=== PATIENT | male | born 1955 | race Caucasian/White ===

== ENCOUNTER → 2019-11-27 14:12 | Outpatient (BNVA) | payer OTHER, SELFPAY | PROVIDERS: Visit Provider Internal Medicine | DX: J06.9 Acute upper respiratory infection, unspecified (principal) | CPT/HCPCS: 87635 ==

== ENCOUNTER 2020-01-27 08:44 | Outpatient (CLI) | payer OTHER, MEDICARE, BC, SELFPAY ==
--- NOTE | 2020-01-27 09:30 | MM_ITS ---
WS: [id number] BILATERAL DIGITAL DIAGNOSTIC MAMMOGRAM MAMMOGRAPHY WITH CAD CLINICAL INFORMATION: left breast mass and pain COMPARISON: 2009 TECHNIQUE: Bilateral CC, MLO, and ML views. FINDINGS: Scattered fibroglandular densities bilaterally. Palpable marker left breast. Asymmetric subareolar fl steve-shaped parenchymal tissue in the left breast likely represents gynecomastia. Ultrasound is pendin g. Unremarkable right breast. ULTRASOUND BREAST LEFT TECHNIQUE: Ultrasound left breast focused area of concern. CLINICAL INFORMATION: left breast mass and pain COMPARISON: 2009 FINDINGS: Ultrasound left breast. Right breast for comparison. Hypoechoic dense parenchymal tissue deep to the areola typical for gynecomastia. No focal cystic or solid mass. Findings most consistent with gynecom astia. Normal subareolar tissue right breast. MM/[place] [id number] IMPRESSION: BI-RADS: 2-Benign FOLLOW UP: See Report Additional management of the palpable abnormality should be based on clinical g rounds.
--- NOTE | 2020-01-27 10:00 | US_ITS ---
WS: [id number] BILATERAL DIGITAL DIAGNOSTIC MAMMOGRAM MAMMOGRAPHY WITH CAD CLINICAL INFORMATION: left breast mass and pain COMPARISON: 2009 TECHNIQUE: Bilateral CC, MLO, and ML views. FINDINGS: Scattered fibroglandular densities bilaterally. Palpable marker left breast. Asymmetric subareolar fl steve-shaped parenchymal tissue in the left breast likely represents gynecomastia. Ultrasound is pendin g. Unremarkable right breast. ULTRASOUND BREAST LEFT TECHNIQUE: Ultrasound left breast focused area of concern. CLINICAL INFORMATION: left breast mass and pain COMPARISON: 2009 FINDINGS: Ultrasound left breast. Right breast for comparison. Hypoechoic dense parenchymal tissue deep to the areola typical for gynecomastia. No focal cystic or solid mass. Findings most consistent with gynecom astia. Normal subareolar tissue right breast. US/US breast LT limited* [id number] IMPRESSION: BI-RADS: 2-Benign FOLLOW UP: See Report Additional management of the palpable abnormality should be based on clinical g rounds.
== END 2020-01-27 08:45 | disposition home or self-care (01) ==
LOC: RADSHAW 08:48
PROVIDERS: PCP Electrodiagnostic Medicine; Visit Provider Surgery
DX: N63.20 Unspecified lump in the left breast, unspecified quadrant (principal); N64.89 Other specified disorders of breast; N64.4 Mastodynia
CPT/HCPCS: 76642; 77066

== ENCOUNTER 2024-01-06 10:02 | Emergency (ER) | payer OTHER, MEDICARE, BC, SELFPAY ==
[2024-01-06] VITALS (8 sets, daily range): BP systolic 105–133; BP diastolic 65–86; PULSE 105–114; RESP 18–20; TEMP 36.5; O2SAT 83–91; BMI 30.7
--- NOTE | 2024-01-06 10:04 | ECG_ITS ---
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 Measurements Intervals [place] Rate: 109 P: 56 TN: 131 QRS: 42 QRSD: 110 T: 56 QT: 335 QTc: 453 Interpretive Statements SINUS TACHYCARDIA ABNORMAL RHYTHM ECG No previous ECG available for comparison Electronically Signed On 01-06-2024 19:24:32 CDT by Olya Lopez M.D. [id number] f
--- NOTE | 2024-01-06 10:08 | XRR_ITS ---
PROCEDURE INFORMATION: Exam: XR Chest Exam date and time: 01/06/2024 11:06 AM Age: 68 years old Clinical indication: Pain; Shortness of breath; Chest pressure; Additional info: Chest pain TECHNIQUE: Imaging protocol: Radiologic exam of the chest. Views: 1 view. COMPARISON: CT angio chest PE protcl [id number] 01/06/2024 10:27 AM FINDINGS: Lungs: Unremarkable. No consolidation. Pleural spaces: Unremarkable. No pleural effusion. No pneumothorax. Heart/Mediastinum: Unremarkable. No cardiomegaly. Bones/joints: Unremarkable. XR/XR chest 1V portable [id number] IMPRESSION: No acute findings.
--- NOTE | 2024-01-06 10:17 | CTR_ITS ---
PROCEDURE INFORMATION: Exam: CTA Chest With Contrast Exam date and time: 01/06/2024 10:27 AM Age: 68 years old Clinical indication: Shortness of breath; Additional info: Dyspnea tachycardia TECHNIQUE: Imaging protocol: Computed tomographic angiography of the chest with contrast. Exam focused on the arteries. 3D rendering (Not supervised by radiologist): MIP and/or 3D reconstructed images were created by the technologist. Radiation optimization: All CT scans at this facility use at least one of these dose optimization techniques: automated exposure control; mA and/or kV adjustment per patient size (includes targeted exams where dose is matched to clinical indication); or iterative reconstruction. Contrast material: OMNI 350; Contrast volume: 77 ml; Contrast route: INTRAVENOUS (IV); COMPARISON: No relevant prior studies available. RADIATION DOSE METRICS: Total DLP (mGy-cm): 465.49 FINDINGS: Pulmonary arteries: Large bilateral pulmonary emboli involve the main pulmonary arteries as well as multiple primary pulmonary artery branches. Aorta: Unremarkable. No aortic aneurysm. No aortic dissection. Lungs: There is a 7 mm pleural-based nodule with an adjacent air-filled cyst involving the superior aspect of the right lower lobe. Both lungs demonstrate chronic interstitial coarsening. There is mucous plugging involving both lung bases. Pleural spaces: Unremarkable. No pneumothorax. No pleural effusion. Heart: Mild cardiomegaly is noted. Heart RV/LV ratio: The RV/LV ratio is 2.6. Lymph nodes: Unremarkable. No enlarged lymph nodes. Bones/joints: Unremarkable. No acute fracture. Soft tissues: Unremarkable. CT/CT angio chest PE protcl [id number] IMPRESSION: 1. Large bilateral pulmonary emboli with severe right heart strain 2. 7 mm right lung nodule 3. For patients at low risk (minimal or absent history of smoking and of other known risk factors), no routine follow-up is indicated. For patients at high risk (history of smoking or of other known risk factors), consider optional CT Chest at 12 months. (Reference: Eduard) REFERENCES: Eduard Alvarez et al. Guidelines for Management of Incidental Pulmonary Nodules Detected on CT Images: From the Fleischner Society 2017. Radiology. 2017;284(1):228-243.
--- NOTE | 2024-01-06 10:17 | CTR_ITS ---
PROCEDURE INFORMATION: Exam: CT Head Without Contrast Exam date and time: 01/06/2024 10:24 AM Age: 68 years old Clinical indication: Stroke-like symptoms; Altered mental status/memory loss; Additional info: Weakness dyspnea TECHNIQUE: Imaging protocol: Computed tomography of the head without contrast. Radiation optimization: All CT scans at this facility use at least one of these dose optimization techniques: automated exposure control; mA and/or kV adjustment per patient size (includes targeted exams where dose is matched to clinical indication); or iterative reconstruction. Other technique: STROKE PROTOCOL was implemented. COMPARISON: No relevant prior studies available. RADIATION DOSE METRICS: Total DLP (mGy-cm): 1106.4 FINDINGS: Brain: Few small old infarcts involve the left cerebellar hemisphere. A small old infarct involves the left parietal lobe region. Mild diffuse cerebral atrophy is noted. I see no evidence of acute hemorrhage, mass effect or infarct on today's study. Cerebral ventricles: No ventriculomegaly. No midline shift. Paranasal sinuses: There is a 2.2 cm rounded mucous retention cyst in the left sphenoid sinus. Mastoid air cells: Visualized mastoid air cells are well aerated. Bones: Unremarkable. No acute fracture. Soft tissues: Unremarkable. CT/CT head wo con* [id number] IMPRESSION: 1. No acute findings. 2. 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
--- NOTE | 2024-01-06 10:17 | CTR_ITS ---
PROCEDURE INFORMATION: Exam: CTA Head With Contrast, Arteriography Exam date and time: 01/06/2024 10:33 AM Age: 68 years old Clinical indication: Paralysis, transient of limb and weakness; Additional info: Left sided weakness dyspnea TECHNIQUE: Imaging protocol: Computed tomographic angiography of the head with contrast. Exam focused on the arteries. 3D rendering (Not supervised by radiologist): MIP and/or 3D reconstructed images were created by the technologist. Radiation optimization: All CT scans at this facility use at least one of these dose optimization techniques: automated exposure control; mA and/or kV adjustment per patient size (includes targeted exams where dose is matched to clinical indication); or iterative reconstruction. Contrast material: OMNIPAQUE 350; Contrast volume: 80 ml; Contrast route: INTRAVENOUS (IV); COMPARISON: CT head wo con* [id number] 01/06/2024 10:24 AM RADIATION DOSE METRICS: Total DLP (mGy-cm): 497.12 FINDINGS: ANTERIOR CIRCULATION: Right internal carotid artery: Intracranial segment is patent with no significant stenosis. No aneurysm. Right middle cerebral artery: No occlusion or significant stenosis. No aneurysm. Right anterior cerebral artery: No occlusion or significant stenosis. No aneurysm. Left internal carotid artery: Intracranial segment is patent with no significant stenosis. No aneurysm. Left middle cerebral artery: No occlusion or significant stenosis. No aneurysm. Left anterior cerebral artery: No occlusion or significant stenosis. No aneurysm. POSTERIOR CIRCULATION: Right vertebral artery: No occlusion or significant stenosis. No aneurysm. Left vertebral artery: No occlusion or significant stenosis. No aneurysm. Basilar artery: No occlusion or significant stenosis. No aneurysm. Right posterior cerebral artery: No occlusion or significant stenosis. No aneurysm. Left posterior cerebral artery: No occlusion or significant stenosis. No aneurysm. Brain: No definite mass, mass effect, or midline shift. Cerebral ventricles: No ventriculomegaly. Bones/joints: Unremarkable. No acute fracture. Soft tissues: Unremarkable. PROCEDURE INFORMATION: Exam: CTA Neck With Contrast Exam date and time: 01/06/2024 10:33 AM Age: 68 years old Clinical indication: Paralysis, transient of limb and weakness; Additional info: Left sided weakness dyspnea TECHNIQUE: Imaging protocol: Computed tomographic angiography of the neck with contrast. Exam focused on the cervical segments of the vasculature. 3D rendering (Not supervised by radiologist): MIP and/or 3D reconstructed images were created by the technologist. Radiation optimization: All CT scans at this facility use at least one of these dose optimization techniques: automated exposure control; mA and/or kV adjustment per patient size (includes targeted exams where dose is matched to clinical indication); or iterative reconstruction. Contrast material: OMNIPAQUE 350; Contrast volume: 80 ml; Contrast route: INTRAVENOUS (IV); COMPARISON: CT angio chest PE protcl [id number] 01/06/2024 10:27 AM RADIATION DOSE METRICS: Total DLP (mGy-cm): 497.12 FINDINGS: Right common carotid artery: No stenosis. No dissection or occlusion. Right internal carotid artery: No stenosis of the extracranial segment. No dissection or occlusion. Right external carotid artery: No occlusion or stenosis of the origin. Left common carotid artery: No stenosis. No dissection or occlusion. Left internal carotid artery: There is mild atheromatous calcific plaque at the origin of left internal carotid artery without significant stenosis. Left external carotid artery: No occlusion or stenosis of the origin. Right vertebral artery: No stenosis. No dissection or occlusion. Left vertebral artery: The left vertebral artery terminates in the left posteroinferior cerebellar artery. The left vertebral artery has a direct origin from the transverse aortic arch. Pulmonary arteries: Incidental note is made of filling defects within right upper lobe pulmonary artery segmental branches compatible with previously reported pulmonary embolism. Paranasal sinuses: A large retention cyst or polyp is noted in the left sphenoid sinus. Polypoid disease is noted in the floors of the maxillary antra. Lymph nodes: Calcified mediastinal lymphadenopathy is noted. Soft tissues: Normal. No significant soft tissue swelling. Bones/joints: Cervical spondylosis is noted. CT/CT angio headneck* [id number] IMPRESSION: No large vessel stenosis or occlusion. IMPRESSION: No carotid stenosis. Pulmonary embolism incompletely imaged, previously reported. Please correlate with CT angiogram performed immediately prior to this examination for more complete description. REFERENCES: NASCET CRITERIA. The degree of stenosis in the cervical segment of the internal carotid artery is based on NASCET criteria. Normal is no stenosis. Mild is less than 50% stenosis. Moderate is 50-69% stenosis. Severe is 70% to 99% stenosis. Total occlusion is no detectable patent lumen.
--- NOTE | 2024-01-06 10:21 | ED_ITS ---
HPI - SOB/Dyspnea 2 General: Chief Complaint: Shortness of Breath/Dyspnea Stated Complaint: Heart Attack systems Time Seen by Provider: 01/06/24 10:08 History of Present Illness: HPI Narrative: Patient presents to the ER complaining of chest pain shortness of breath today. He is 80% on room air. He denies any O2 at baseline. He says he has had a history of a stroke about 15 years ago. Patient also complained of some left- sided weakness and upon further testing there was he had some right sided vision changes primarily in his right eye may also have some decrease sensation on the left side of his face and arm. Related Data Home Medications Medication Instructions Recorded Confirmed aspirin 81 mg tablet,delayed 81 mg PO DAILY 01/16/20 02/02/20 release (Adult Low Dose Aspirin) multivitamin 1 tab PO DAILY 01/16/20 02/02/20 simvastatin 40 mg tablet 40 mg PO DAILY 01/16/20 02/02/20 Allergies Allergy/AdvReac Type Severity Reaction Status Date / Time No Known Allergies Allergy Verified 02/02/20 11:52 Review of Systems 2 General: Reports: 10 or more systems reviewed and unremarkable except in HPI and below PFSH ED 2 PFSH: Medical History (Updated 01/06/24 @ 12:32 by Luis M Torres DO) CVA (cerebral vascular accident) Amputation of finger Surgical History H/O esophagogastroduodenoscopy yrs ago age of 29's H/O colonoscopy 2018 History of ankle surgery left ankle Family History Mother Cancer uterine Father Cancer stomach Denies family history of Diabetes Anesthesia complication Bleeding disorder Social History Smoking and tobacco/nicotine status: never used tobacco/nicotine Alcohol intake: never Substance/Drug Use: never Lives independently: Yes Marital status: Single Current occupational status: employed Physical Exam 2 Const: COMMON NORMALS: no acute distress, average body habitus, patient oriented x3, no limitations, healthy appearing, alert and well nourished HENMT: COMMON NORMALS: normocephalic, atraumatic, hearing grossly normal bilaterally, external ears normal, Normal external nose present and moist oral mucous membranes HEAD & SCALP: normocephalic and atraumatic NOSE: Normal external nose present EXTERNAL EAR: Yes external ears normal Eye: COMMON NORMALS: Equal, round and reactive pupils present, EOMs intact bilaterally, conjunctivae normal and no scleral icterus CONJUNCTIVA: Yes conjunctivae normal PUPIL: Yes Equal, round and reactive pupils present Neck/C-Spine: COMMON NORMALS: full ROM, no lymphadenopathy, supple, no meningeal signs, no JVD and Thyroid normal THYROID: Thyroid normal Chest: COMMONS NORMALS: normal inspection of the chest and normal palpation of entire chest wall Resp: COMMON NORMALS: normal respiratory effort, No retractions, No use of accessory muscles and clear to auscultation bilaterally AUSCULTATION: clear to auscultation bilaterally Cardio: COMMON NORMALS: no JVD, regular rate, regular rhythm, S1 normal heart sound present, S2 normal heart sound present, No gallops present (Cardio), No clicks present (Cardio), No murmurs present (Cardio) and No rub (Cardio) R ATE: regular rate RHYTHM: regular rhythm HEART SOUNDS: S1 normal heart sound present and S2 normal heart sound present GI: COMMON NORMALS: Normal to inspection, nondistended, normoactive bowel sounds present, Soft to palpation, non-tender, No hepatosplenomegaly present and no masses PALPATION: Yes Soft to palpation and Yes No hepatosplenomegaly present Neuro: COMMON NORMALS: patient oriented x3 SENSORIUM/ORIENTATION: Yes alert MENINGEAL SIGNS: Yes no meningeal signs Course 2 Vital Signs: Vital signs: Vital Signs Temperature 97.7 F 01/06/24 10:10 Pulse Rate 109 H 01/06/24 11:14 Respiratory Rate 18 01/06/24 10:48 Blood Pressure 105/72 01/06/24 11:14 Pulse Oximetry 91 01/06/24 11:14 Oxygen Delivery Me thod Non-Rebreather 01/06/24 11:14 Oxygen Flow Rate 15 01/06/24 10:48 MDM - SOB/Dyspnea Medical Decision Making Alert was called, [facility], [facility] Dr. Baron teleneurology was consulted she says is not a clear-cut stroke does not recommend TNKase at this time, treat with heparin, and consult an furnace worker for some ophthalmologic problem, Dr. dave ophthalmology said it appears like to be released and optimized logical problem and I will be happy to see the person if the transferred there., Dr. Patterson ED was consulted who said he is happy to take the patient in transfer. We have started the patient on a heparin drip and heparin bolus. Patient be flown if possible. Medical Records I reviewed the patient's medical records. Lab Data I reviewed the patient's lab results. 01/06/24 10:17 01/06/24 10:17 Labs/Radiology: Radiology Impressions Chest X-Ray 01/06/24 10:08 IMPRESSION: No acute findings. Chest CTA 01/06/24 10:17 IMPRESSION: 1. Large bilateral pulmonary emboli with severe right heart strain 2. 7 mm right lung nodule 3. For patients at low risk (minimal or absent history of smoking and of other known risk factors), no routine follow-up is indicated. For patients at high risk (history of smoking or of other known risk factors), consider optional CT Chest at 12 months. (Reference: Eduard) REFERENCES: Eduard Alvarez, et al. Guidelines for Management of Incidental Pulmonary Nodules Detected on CT Images: From the Fleischner Society 2017. Radiology. 2017;284(1):228-243. ADDENDUM: 01/06/24 1053 COMMENT: THIS REPORT CONTAINS FINDINGS THAT MAY BE CRITICAL TO PATIENT CARE. The exam findings were verbally communicated by me to Luis M Torres via telephone conference at 10:51 AM CDT on 01/06/2024. The findings were acknowledged and understood. Head CT 01/06/24 10:17 IMPRESSION: 1. No acute findings. 2. 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 Head/Neck CTA 01/06/24 10:17 IMPRESSION: No large vessel stenosis or occlusion. IMPRESSION: No carotid stenosis. Pulmonary embolism incompletely imaged, previously reported. Please correlate with CT angiogram performed immediately prior to this examination for more complete description. REFERENCES: NASCET CRITERIA. The degree of stenosis in the cervical segment of the internal carotid artery is based on NASCET criteria. Normal is no stenosis. Mild is less than 50% stenosis. Moderate is 50-69% stenosis. Severe is 70% to 99% stenosis. Total occlusion is no detectable patent lumen. Laboratory Results WBC 8.73 10^3/uL (3.29-11.43) 01/06/24 10:17 RBC 4.83 10^6/uL (3.85-5.65) 01/06/24 10:17 Hgb 14.90 g/dL (11.27-16.99) 01/06/24 10:17 Hct 45.3 % (37-53) 01/06/24 10:17 MCV 93.8 fl (82-101) 01/06/24 10:17 MCH 30.8 pg (27-33) 01/06/24 10:17 MCHC 32.9 g/dL (30-55) 01/06/24 10:17 RDW 12.8 % (12.1-15.1) 01/06/24 10:17 Plt Count 150 10^3/cmm (157-399) L 01/06/24 10:17 MPV 8.9 fL (7.4-10.4) 01/06/24 10:17 Neut % (Auto) 56.7 % 01/06/24 10:17 Lymph % (Auto) 30.6 % 01/06/24 10:17 [place] % (Auto) 9.5 % 01/06/24 10:17 Eos % (Auto) 2.2 % 01/06/24 10:17 Baso % (Auto) 0.5 % 01/06/24 10:17 Neut # (Auto) 4.96 10^3/uL (1.8-7.7) 01/06/24 10:17 Lymph # (Auto) 2.7 10^3/uL (0.8-4.8) 01/06/24 10:17 [place] # (Auto) 0.8 10^3/uL (0.2-0.9) 01/06/24 10:17 Eos # (Auto) 0.2 10^3/uL (0.0-0.8) 01/06/24 10:17 Baso # (Auto) 0.0 10^3/uL (0.0-0.1) 01/06/24 10:17 Nucleated RBC % (auto) 0 % 01/06/24 10:17 Nucleated RBCs # 0.0 /100WBC 01/06/24 10:17 PT 14.80 SECONDS (12.1-14.9) 01/06/24 10:17 INR 1.12 (0.8-1.2) 01/06/24 10:17 D-Dimer >= 20.00 ug/mLFEU (0-0.59) H 01/06/24 10:17 Specimen Type Arterial 01/06/24 10:15 Sample Site Radial, left 01/06/24 10:15 ABG pH 7.50 (7.35-7.45) H 01/06/24 10:15 ABG pCO2 28.5 mmHg (35-45) L 01/06/24 10:15 ABG pO2 44.3 mmHg (80.0-100.0) L 01/06/24 10:15 ABG HCO3 22.1 mmol/L (22-26) 01/06/24 10:15 ABG O2 Saturation 85.6 01/06/24 10:15 ABG Base Excess 0.1 mmol/L (-2.0-2.0) 01/06/24 10:15 Martin Test Pos 01/06/24 10:15 A-a O2 Gradient 9.0 mmHg (5-10) 01/06/24 10:15 Hematocrit 45.6 % (42-52) 01/06/24 10:15 Hgb O2 Saturation 83.8 % (95-100) L 01/06/24 10:15 Carboxyhemoglobin 1.2 %THgb (0.4-20.1) 01/06/24 10:15 Methemoglobin 0.9 % (0.4-1.5) 01/06/24 10:15 Total Hemoglobin 14.9 g/dL (14-18) 01/06/24 10:15 Sodium 138.0 mmol/L (131-143) 01/06/24 10:15 Potassium 3.6 mmol/L (3.5-5.0) 01/06/24 10:15 Glucose 164.0 mg/dL (70-115) H 01/06/24 10:15 Ionized Calcium 1.1 mmol/L (1.1-1.4) 01/06/24 10:15 O2 Delivery Device Nc 01/06/24 10:15 O2 Liters/Min 6.0 % 01/06/24 10:15 Ladies Locker Room Attendant ID Cak 01/06/24 10:15 Sodium 133 mmol/L (136-145) L 01/06/24 10:17 Potassium 3.9 mmol/L (3.5-5.1) 01/06/24 10:17 Chloride 97 mmol/L (98-107) L 01/06/24 10:17 Carbon Dioxide 23 mmol/L (22-29) 01/06/24 10:17 Anion Gap 16.9 (5-19) 01/06/24 10:17 BUN 15 mg/dL (8-23) 01/06/24 10:17 Creatinine 0.9 mg/dL (0.7-1.2) 01/06/24 10:17 GFR Calculation 83.7 mL/min (90-130) L 01/06/24 10:17 Glucose 160 mg/dL (65-115) H 01/06/24 10:17 POC Glucose 157 mg/dL (70-110) H 01/06/24 10:24 Calculated Osmolality 280 mOsm/kg (285-295) L 01/06/24 10:17 Calcium 8.8 mg/dL (8.5-10.5) 01/06/24 10:17 Magnesium 1.9 mg/dL (1.7-2.3) 01/06/24 10:17 Total Bilirubin 0.8 mg/dL (0.15-1.2) 01/06/24 10:17 AST 18 U/L (0-40) 01/06/24 10:17 ALT 15 U/L (0-41) 01/06/24 10:17 Alkaline Phosphatase 96 U/L (40-130) 01/06/24 10:17 Troponin T Baseline 54 ng/L (0-15) H 01/06/24 10:17 C-Reactive Protein 50.5 mg/L (0.0-4.9) H 01/06/24 10:17 Total Protein 7.2 g/dL (6.6-8.7) 01/06/24 10:17 Albumin 3.8 g/dL (3.5-5.2) 01/06/24 10:17 Globulin 3.4 g/dL (1.3-4.6) 01/06/24 10:17 TSH 2.12 uIU/mL (0.27-4.20) 01/06/24 10:17 All radiology interpretation(s) finalized by discharge Discharge Plan Discharge Patient Disposition: Xfer Short-Term Hosp Clinical Impression: Pulmonary embolism Condition: Stable Prescriptions: No Action multivitamin Tablet 1 tab PO DAILY aspirin [Adult Low Dose Aspirin] 81 mg tablet,delayed release (DR/EC) 81 mg PO DAILY simvastatin 40 mg tablet 40 mg PO DAILY Referrals: Jorge Corley DO [Primary Care Provider] - Coding Level of Care Code ED Tray Server for Ashley Davis NIH stroke score NIHSS Level Of Consciousness - 1a: 0 Level Of Consciousness Questions - 1b: Both Correct Level Of Consciousness Commands - 1c: Both Correct Best Gaze - 2: Partial Gaze Palsy Visual Garcia - 3: Partial Hemianopia Facial Palsy - 4: Normal Motor Arm Right - 5: No Drift Motor Arm Left - 5: No Drift Motor Leg Right - 6: No Drift Motor Leg Left - 6: No Drift Limb Ataxia - 7: Absent Sensory - 8: Mild To Moderate Loss Best Language - 9: No Aphasia Dysarthia - 10: Normal
[2024-01-06 10:22] LABS: Basophils % 0.5 %; Eosinophils # 0.2 10^3/uL (0.0-0.8); Eosinophils % 2.2 %; Hematocrit 45.3 % (37-53); Lymphocytes # 2.7 10^3/uL (0.8-4.8); Lymphocytes % 30.6 %; Mean Corpuscular HGB Conc 32.9 g/dL (30-55); Mean Corpuscular Hemoglobin 30.8 pg (27-33); Mean Corpuscular Volume 93.8 fl (82-101); Mean Platelet Volume 8.9 fL (7.4-10.4); Monocytes # 0.8 10^3/uL (0.2-0.9); Monocytes % 9.5 %; Neutrophils # 4.96 10^3/uL (1.8-7.7); Neutrophils % 56.7 %; Nucleated Red Blood Cells % 0 %; Platelet Count 150 10^3/cmm (157-399); Red Blood Count 4.83 10^6/uL (3.85-5.65); Red Cell Distribution Width 12.8 % (12.1-15.1); White Blood Count 8.73 10^3/uL (3.29-11.43)
[2024-01-06 10:26] LABS: ABG PCO2 28.5 mmHg (35-45); Arterial Blood Gas Hematocrit 45.6 % (42-52); Base Excess ABG 0.1 mmol/L (-2.0-2.0); Blood Gas Allen Test Pos; Blood Gas Operator Identificat CAK; Blood Gas Sample Site Radial, left; Blood Gas Sample Type Arterial; Carboxyhemoglobin 1.2 %THgb (0.4-20.1); HCO3 ABG 22.1 mmol/L (22-26); HGB O2 Sat 83.8 % (95-100); Ionized Calcium Level - ABG 1.1 mmol/L (1.1-1.4); Methemoglobin 0.9 % (0.4-1.5); Oxygen Device NC; Oxygen Saturation ABG 85.6; PO2 ABG 44.3 mmHg (80.0-100.0); Potassium Level - ABG 3.6 mmol/L (3.5-5.0); Total Hemoglobin 14.9 g/dL (14-18)
[2024-01-06 10:27] LABS: Glucose Point of Care 157 mg/dL (70-110)
[2024-01-06] MEDS: iohexol 350 mg/mL 500 mL Btl (per mL) IV ×2 (10:32→10:36)
[2024-01-06 10:39] LABS: INR 1.12 (0.8-1.2)
[2024-01-06 10:44] LABS: Troponin(5th) Baseline 54 ng/L (0-15)
[2024-01-06] MEDS: ipratropium-albuterol 3 mL Neb INHALATION (10:48)
[2024-01-06 10:55] LABS: D Dimer >= 20.00 ug/mLFEU (0-0.59)
[2024-01-06 11:01] LABS: Alanine Aminotransferase 15 U/L (0-41); Albumin Level 3.8 g/dL (3.5-5.2); Alkaline Phosphatase 96 U/L (40-130); Anion Gap 16.9 (5-19); Aspartate Amino Transferase 18 U/L (0-40); Blood Urea Nitrogen 15 mg/dL (8-23); C Reactive Protein 50.5 mg/L (0.0-4.9); Calcium 8.8 mg/dL (8.5-10.5); Carbon Dioxide 23 mmol/L (22-29); Chloride 97 mmol/L (98-107); Creatinine Clr Calc Pharmacy 93.2379; Globulin 3.4 g/dL (1.3-4.6); Glomerular Filtration Rate 83.7 mL/min (90-130); Glucose 160 mg/dL (65-115); Magnesium 1.9 mg/dL (1.7-2.3); Osmolality Calculated 280 mOsm/kg (285-295); Potassium 3.9 mmol/L (3.5-5.1); Sodium 133 mmol/L (136-145); Thyroid Stimulating Hormone 2.12 uIU/mL (0.27-4.20); Total Bilirubin 0.8 mg/dL (0.15-1.2); Total Protein 7.2 g/dL (6.6-8.7)
[2024-01-06] MEDS: heparin drip 25,000 UNIT/500 ML PREMIX 27.94 UNIT IV (12:05)
[2024-01-06] MEDS: heparin 5,000 unit/mL INJ 1 mL IVP (12:08)
--- NOTE | 2024-01-06 12:10 | PC.NURSE ---
PATIENTS WEIGHT IS 105 KG ROUNDED. PER PROTOCOL, ADMIN [address] THOMAS, HE REQUESTED TO ONLY ADMIN 4000 UNIT BOLUS AND THEN TITRATE FROM 105 KG HEPARIN DRIP PROTOCOL. PATIENT GIVEN 4000 UNIT BOLUS AND THEN STARTED ON 29 ML (105 KG) PER DRIP PROTOCOL. PULLED 5300 UNITS OF HEPARIN FROM [employer]. RETURNED 1 VIAL TO [employer] TO ADMIN 4000 UNITS OF HEPARIN WITH ROCÍO VALDEZ WITNESS.
--- NOTE | 2024-01-06 12:23 | ECG_ITS ---
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 Measurements Intervals [place] Rate: 109 P: 50 LA: 143 QRS: 27 QRSD: 106 T: -10 QT: 346 QTc: 468 Interpretive Statements SINUS TACHYCARDIA LOW QRS VOLTAGE IN PRECORDIAL LEADS [QRS DEFLECTION < 1.0 mV IN CHEST LEADS] NONSPECIFIC T-WAVE ABNORMALITY ABNORMAL RHYTHM ECG Compared to ECG 01/06/2024 10:04:06 Low QRS voltage now present T-wave abnormality now present Electronically Signed On 01-06-2024 19:31:48 CDT by Olya Lopez M.D. [id number]
[2024-01-06 12:53] LABS: Bilirubin Urine Negative (Negative); Blood Urine Negative (Negative); Glucose Urine UA Negative (Normal); Ketones Urine Negative (Negative); Leukocyte Esterase Urine Negative (Negative); Nitrate Urine Negative (Negative); Protein Urine Trace (Negative); Urine Appearance Clear (CLEAR); Urine Color Yellow (Yellow); pH Urine 7.5 (5-7)
[2024-01-06 12:58] LABS: Add Urine Microscopic? YES; Bacteria Urine None Seen /hpf; Squamous Epithelial Cell Urine 0-5 /hpf (0-5); WBC Urine 0-5 /hpf (0-5)
[2024-01-06 13:12] LABS: Specific Gravity, Urine 1.083 (1.005-1.030)
[2024-01-06 13:13] LABS: Troponin 5 2HR 289.1 ng/L (0-15); Troponin 5 2HR Delta 235.1 ABS# (0-10)
== END 2024-01-06 13:36 | disposition short-term general hospital (02) ==
PROVIDERS: Emergency Provider Emergency Medicine; PCP Electrodiagnostic Medicine
DX: I26.99 Other pulmonary embolism without acute cor pulmonale (principal); Z79.82 Long term (current) use of aspirin; Z86.73 Personal history of transient ischemic attack (TIA), and cerebral infarction without residual deficits
CPT/HCPCS: 36416; 36600; 70450; 70496; 70498; 71045; 71275; 80051; 80053; 81001; 82330; 82805; 82962; 83735; 84443; 84484; 85025; 85378; 85610; 86140; 93005; 94640; 96374; 99285; 99291; 99292; J1644

== ENCOUNTER 2024-02-05 12:55 | Oncology outpatient (recurring) (ONCR) | payer OTHER, MEDICARE, BC, SELFPAY ==
[2024-02-05 13:25] LABS: Basophils % 0.4 %; Eosinophils # 0.1 10^3/uL (0.0-0.8); Eosinophils % 1.6 %; Hematocrit 41.3 % (37-53); Lymphocytes # 1.8 10^3/uL (0.8-4.8); Lymphocytes % 26.4 %; Mean Corpuscular HGB Conc 32.9 g/dL (30-55); Mean Corpuscular Hemoglobin 30.4 pg (27-33); Mean Corpuscular Volume 92.2 fl (82-101); Mean Platelet Volume 9.1 fL (7.4-10.4); Monocytes # 0.6 10^3/uL (0.2-0.9); Monocytes % 8.6 %; Neutrophils # 4.28 10^3/uL (1.8-7.7); Neutrophils % 62.7 %; Nucleated Red Blood Cells % 0 %; Platelet Count 228 10^3/cmm (157-399); Red Blood Count 4.48 10^6/uL (3.85-5.65); Red Cell Distribution Width 12.7 % (12.1-15.1); White Blood Count 6.83 10^3/uL (3.29-11.43)
[2024-02-05 13:51] LABS: Alanine Aminotransferase 22 U/L (0-41); Albumin Level 4.1 g/dL (3.5-5.2); Alkaline Phosphatase 103 U/L (40-130); Anion Gap 14.3 (5-19); Aspartate Amino Transferase 22 U/L (0-40); Blood Urea Nitrogen 17 mg/dL (8-23); Calcium 8.8 mg/dL (8.5-10.5); Carbon Dioxide 25 mmol/L (22-29); Chloride 104 mmol/L (98-107); Creatinine Clr Calc Pharmacy 85.5246; Globulin 3.1 g/dL (1.3-4.6); Glomerular Filtration Rate 74.1 mL/min (90-130); Glucose 100 mg/dL (65-115); Osmolality Calculated 290 mOsm/kg (285-295); Potassium 4.3 mmol/L (3.5-5.1); Sodium 139 mmol/L (136-145); Total Bilirubin 0.5 mg/dL (0.15-1.2); Total Protein 7.2 g/dL (6.6-8.7)
[2024-02-05 14:27] LABS: INR 1.18 (0.8-1.2); Partial Thromboplastin Time 29.1 SECONDS (23.9-36.7)
[2024-02-08 23:10] LABS: Lupus DRVVT Confirm NEGATIVE (NEGATIVE); PTT-LA-Screen 35 sec (< OR = 40)
[2024-02-09 04:20] LABS: Antithrombin III Activity 119 % normal (80-135)
[2024-02-09 20:34] LABS: PROTEIN C, ACTIVITY 132 % normal (70-180)
[2024-02-11 03:16] LABS: Beta 2 Glycoprotein IGA <2.0 U/mL (<20.0); Beta 2 Glycoprotein IGG <2.0 U/mL (<20.0); Beta 2 Glycoprotein IGM <2.0 U/mL (<20.0)
[2024-02-16 02:14] LABS: CARDIOLIPIN AB (IGA) <2.0 APL-U/mL; CARDIOLIPIN AB (IGG) <2.0 GPL-U/mL; CARDIOLIPIN AB (IGM) <2.0 MPL-U/mL
[2024-02-16 12:09] LABS: Factor 5 Leiden Mutation NEGATIVE
== END 2024-02-14 23:59 | disposition home or self-care (01) ==
PROVIDERS: PCP Electrodiagnostic Medicine; Visit Provider Internal Medicine Hematology & Oncology
DX: I26.09 Other pulmonary embolism with acute cor pulmonale (principal); I26.99 Other pulmonary embolism without acute cor pulmonale
CPT/HCPCS: 36415; 80053; 81241; 85025; 85300; 85303; 85610; 85613; 85730; 86146; 86147

== ENCOUNTER 2024-04-01 13:27 | Oncology outpatient (recurring) (ONCR) | payer OTHER, MEDICARE, BC, SELFPAY ==
[2024-04-01 13:48] LABS: Basophils % 0.4 %; Eosinophils # 0.2 10^3/uL (0.0-0.8); Eosinophils % 2.4 %; Hematocrit 44.4 % (37-53); Lymphocytes # 1.8 10^3/uL (0.8-4.8); Lymphocytes % 27.4 %; Mean Corpuscular HGB Conc 33.1 g/dL (30-55); Mean Corpuscular Hemoglobin 30.8 pg (27-33); Mean Corpuscular Volume 92.9 fl (82-101); Monocytes # 0.6 10^3/uL (0.2-0.9); Monocytes % 8.5 %; Neutrophils # 4.09 10^3/uL (1.8-7.7); Nucleated Red Blood Cells % 0 %; Platelet Count 229 10^3/cmm (157-399); Red Blood Count 4.78 10^6/uL (3.85-5.65); Red Cell Distribution Width 13.2 % (12.1-15.1); White Blood Count 6.71 10^3/uL (3.29-11.43)
[2024-04-01 14:08] LABS: Alanine Aminotransferase 24 U/L (0-41); Albumin Level 4.1 g/dL (3.5-5.2); Alkaline Phosphatase 93 U/L (40-130); Anion Gap 19.2 (5-19); Aspartate Amino Transferase 21 U/L (0-40); Blood Urea Nitrogen 20 mg/dL (8-23); Calcium 9.6 mg/dL (8.5-10.5); Carbon Dioxide 25 mmol/L (22-29); Chloride 100 mmol/L (98-107); D Dimer 0.46 ug/mLFEU (0-0.59); Glomerular Filtration Rate 74.1 mL/min (90-130); Glucose 126 mg/dL (65-115); Lactate Dehydrogenase 213 U/L (135-225); Osmolality Calculated 294 mOsm/kg (285-295); Potassium 4.2 mmol/L (3.5-5.1); Sodium 140 mmol/L (136-145); Total Bilirubin 0.5 mg/dL (0.15-1.2); Total Protein 7.1 g/dL (6.6-8.7)
== END 2024-04-15 23:59 | disposition home or self-care (01) ==
PROVIDERS: Internal Medicine Hematology & Oncology; PCP Electrodiagnostic Medicine; Visit Provider Internal Medicine Medical Oncology
DX: I26.99 Other pulmonary embolism without acute cor pulmonale
CPT/HCPCS: 36415; 80053; 83615; 85025; 85378

== ENCOUNTER 2024-05-05 09:57 | Outpatient (CLI) | payer OTHER, MEDICARE, SELFPAY ==
--- NOTE | 2024-05-05 10:04 | MM_ITS ---
WS: [id number]NOST[facility] LEFT DIGITAL TOMOSYNTHESIS MAMMOGRAPHY WITH CAD. LEFT breast ultrasound, limited HISTORY: LEFT BREAST LUMP COMPARISON: 01/27/2020, 08/20/2009 Technique: CC, MLO and ML views. LEFT CC spot compression. Breast composition: There are scattered areas of fibroglandular density. Triangular marker along the medial LEFT breast at the site of the palpable abnormality is identified. There is no underlying mass or soft tissue distortion. There is some very minimal retroareolar fibro glandular tissue. No nipple retraction. LEFT breast ultrasound, limited. Hyperechoic very superficial mass in the LEFT breast at 10:00 corresponds to the palpable abnormality . Mass measures 1.5 x 1.5 x 0.8 cm. No increased vascularity. Benign appearing mass. MM/MM diag LT tomosynthesis [id number] IMPRESSION: BI-RADS: 2 - Benign. FOLLOW UP: See Report No additional follow-up necessary. The palpable area corresponds to a small lip penny versus fat necrosis.
== END 2024-05-05 09:58 | disposition home or self-care (01) ==
LOC: RAD 10:01
PROVIDERS: PCP Electrodiagnostic Medicine; Visit Provider Electrodiagnostic Medicine
DX: N63.22 Unspecified lump in the left breast, upper inner quadrant (principal); R92.322 Mammographic fibroglandular density, left breast
CPT/HCPCS: 76642; 77061; G0279

== ENCOUNTER 2024-05-13 07:53 | Outpatient (CLI) | payer OTHER, MEDICARE, SELFPAY ==
--- NOTE | 2024-05-13 08:00 | USCV_ITS ---
Jose Enrique Cali Age: 68 Gender: M : 1955 Exam Date: 05/13/2024 08:25 Ordering Phys: Jorge Corley DO Technologist: CT Exam Location: [facility] – [place], [place]_ Indication: BP: 138 / 79 HR: 55 Rhythm: Sinus Technical Quality: Adequate MEASUREMENTS (Male / Female) Normal Values 2D ECHO LVOT Diameter 2.1 cm LV Ejection Fraction MOD 4C 66.4 % LV Ejection Fraction MOD 2C 69.4 % LV Ejection Fraction 2C AL 70.9 % LA Diameter 3.7 cm RA Systolic Volume 4C AL 46.4 ml RA Systolic Volume 4C MOD 45.6 ml LA Sys Volume AL 56.5 cm cubed LA Sys Volume Index AL 24.1 cm cubed/m squared Aorta at Sinotubular Diameter 3.1 cm M-MODE LA Ao Ratio MM 1.5 AV Cusp Separation MM 2.2 cm DOPPLER AV Peak Velocity 91.0 cm/s LVOT Peak Velocity 74.0 cm/s AV Area Cont Eq vti 3.4 cm squared AV Area Cont Eq pk 3.0 cm squared MV Peak Velocity 73.0 cm/s MV Area PHT 3.1 cm squared Mitral E to A Ratio 1.3 TV Peak Velocity 264.0 cm/s TR Peak Velocity 266.5 cm/s TR Peak Gradient 28.4 mmHg TR Mean Velocity 185.0 cm/s TR Mean Gradient 16.5 mmHg TR Velocity Time Integral 90.8 cm TV Peak E Velocity 75.0 cm/s PV Peak Velocity 122.0 cm/s FINDINGS Left Ventricle Left ventricle is normal size. LV systolic function is normal with EF of 60-65%. No regional wall motion abnormalities are seen. Right Ventricle Normal in size and function Right Atrium Normal in size Left Atrium Normal in size Mitral Valve Mild mitral annular calcification. Mild mitral regurgitation. Aortic Valve Structurally normal aortic valve. No significant stenosis or regurgitation. Tricuspid Valve Mild tricuspid regurgitation. Pulmonary artery systolic pressure is normal. Pulmonic Valve Not well visualized Pericardium Normal Aorta Normal in size IVC Not well visualized CONCLUSIONS LV systolic function is normal with EF of 60-65% Mild mitral regurgitation Mild tricuspid regurgitation No comparison studies are available. Castro Galvan MD (Electronically Signed) Final Date: 18 May 2024 13:22 S
== END 2024-05-13 07:54 | disposition home or self-care (01) ==
PROVIDERS: PCP Electrodiagnostic Medicine; Visit Provider Electrodiagnostic Medicine
DX: Q21.12 Patent foramen ovale (principal); I34.81 Nonrheumatic mitral (valve) annulus calcification; I34.0 Nonrheumatic mitral (valve) insufficiency; I07.1 Rheumatic tricuspid insufficiency
CPT/HCPCS: C8929

== ENCOUNTER 2025-03-05 06:00 | Outpatient (CLI) | payer OTHER, MEDICARE, BC, SELFPAY ==
--- NOTE | 2025-03-05 16:05 | XRR_ITS ---
PROCEDURE INFORMATION: Exam: XR Left Foot Exam date and time: 03/05/2025 9:25 AM Age: 69 years old Clinical indication: Foot and heel; Left; He has had lt foot pain for 2 weeks. No known injury; Additional info: Pain of the lt heel TECHNIQUE: Imaging protocol: Radiologic exam of the left foot. Views: 3 or more views. COMPARISON: No relevant prior studies available. FINDINGS: Bones/joints: Hallux valgus deformity. Lateral plate and screw fixation of the distal fibula with syndesmotic screw. No acute fracture or dislocation. Diffuse osseous demineralization. Soft tissues: Normal. XR/XR foot LT min 3V* [id number] IMPRESSION: No acute fracture or dislocation.
== END 2025-03-05 06:01 | disposition home or self-care (01) ==
LOC: RADOUTREAD 16:01
PROVIDERS: PCP Electrodiagnostic Medicine; Visit Provider Electrodiagnostic Medicine
DX: M79.672 Pain in left foot (principal); M20.12 Hallux valgus (acquired), left foot; Z96.89 Presence of other specified functional implants
CPT/HCPCS: 73630